=== PATIENT | male | born 1985 | race Caucasian/White ===

== ENCOUNTER 2022-04-09 15:26 | Emergency (ER) | payer SELFPAY ==
[2022-04-09] MEDS: Lidocaine/Epineph/Tetracaine 3 ML Syringe TOP ONE (15:44)
[2022-04-09] MEDS: Lidocaine/Epineph/Tetracaine 3 ML Syringe ONE (16:37)
== END 2022-04-09 16:20 | disposition home or self-care (01) ==
LOC: KA.ED 15:26
DX: S41.112A Laceration without foreign body of left upper arm, initial encounter (principal); I10 Essential (primary) hypertension; W26.0XXA Contact with knife, initial encounter
CPT/HCPCS: 12001; 99282; 99283; A9270-GY